=== PATIENT | female | born 1940 | race Caucasian/White ===

== ENCOUNTER 2019-01-05 07:58 | Emergency (ER) | payer MEDICARE ==
--- NOTE | 2019-01-05 13:12 | RAD ---
LEFT WRIST 3 VIEWS: DATE: 01/05/2019. FINDINGS: A nondisplaced fracture of the distal radius is present, probably with some slight impaction. The di stal ulna appeared intact, as did the carpal bones. IMPRESSION: Nondisplaced fracture of the distal radius. POS: HOME
== END 2019-01-05 08:38 | disposition home or self-care (01) ==
LOC: BURERS 07:58
DX: S52.502A Unspecified fracture of the lower end of left radius, initial encounter for closed fracture (principal); E78.5 Hyperlipidemia, unspecified; E78.00 Pure hypercholesterolemia, unspecified; I10 Essential (primary) hypertension; Z79.82 Long term (current) use of aspirin; Z79.899 Other long term (current) drug therapy; W17.89XA Other fall from one level to another, initial encounter